=== PATIENT | male | born 1975 | race Hispanic/Latino ===

== ENCOUNTER 2016-09-07 15:26 | Emergency (ER) | payer OTHER ==
[~2016-09-07] VITALS: Ht 170.2 cm; Wt 98.0 kg
[~2016-09-07 15:26] MED LIST: COLC0.6C3 PO; HYDR-3874 PO; METH4TAB PO
[2016-09-07] MEDS ORDERED: LIDOCAINE/EPI 2% 1:100,00 (XYLOCAINE) 20 ML VIAL ONE (15:29)
[2016-09-07] MEDS ORDERED: LIDOCAINE/EPI 2% 1:100,00 (XYLOCAINE) 20 ML VIAL INJ ONE (15:30)
[2016-09-07] MEDS ORDERED: TETANUS,DIPTH,PERTUSS P/F (BOOSTRIX) 0.5 ML VIAL IM ONE ×2 (15:33→15:45)
[2016-09-07] MEDS ORDERED: AMOX-355 PO (16:06)
--- NOTE | 2016-09-07 16:06 | ED EENT ---
History of Present Illness General Chief Complaint: Laceration Stated Complaint: FACIAL LAC Nursing Triage Note: to ER with friend with reports of upper lip laceration while at work today. Source: patient Exam Limitations: no limitations History of Present Illness Time seen by provider: 16:02 Initial Comments To ER with a laceration to the left upper lip from running into a metal object at work at [employer]. Tetanus is not up-to-date. Timing/Duration: abrupt Severity: moderate Location: facial Prearrival Treatment: no prearrival treatment Allergies and Home Medications Allergies Coded Allergies: No Known Drug Allergies (Unverified , 10/06/11) Home Medications Colchicine 0.6 Mg Capsule, 0.6 MG PO Q1HR PRN for PAIN, #10 Prescribed by: APRIL ZAMORA on 10/20/152032 Hydrocodone/Acetaminophen 1 Each Tablet, 1-2 EACH PO Q4H PRN for PAIN, #10 Prescribed by: APRIL ZAMORA on 10/20/152032 Methylprednisolone 4 Mg Tab.ds.pk, 4 MG PO UD, #1 Prescribed by: APRIL ZAMORA on 10/20/152032 Review of Systems Constitutional: see HPI Eyes: No Symptoms Reported Ears: No Symptoms Reported Nose: no symptoms reported Mouth: see HPI Throat: no symptoms reported Respiratory: no symptoms reported Cardiovascular: no symptoms reported Musculoskeletal: no symptoms reported Past Svareim-Qdrebj-Twagki Hx Patient Social History Alcohol Use: Occasionally Uses Recreational Drug Use: No Smoking Status: Never a Smoker 2nd Hand Smoke Exposure: No Recent Foreign Travel: No Contact w/Someone Who Travel: No Recent Infectious Disease Expo: No Recent Hopitalizations: No Immunizations Up To Date Tetanus Booster (TDap): More than 5yrs Surgeries HX Surgeries: No Respiratory Hx Respiratory Disorders: No Cardiovascular Hx Cardiac Disorders: No Neurological Hx Neurological Disorders: No Reproductive System Hx Reproductive Disorders: No Genitourinary Hx Genitourinary Disorders: No Gastrointestinal Hx Gastrointestinal Disorders: No Musculoskeletal Hx Musculoskeletal Disorders: No Endocrine Hx Endocrine Disorders: No HEENT HX ENT Disorders: No Cancer Hx Cancer: No Psychosocial Hx Psychiatric Problems: No Integumentary HX Skin/Integumentary Disorder: No Blood Transfusions Hx Blood Disorders: No Physical Exam Vital Signs Vital Sign - Last 12Hours 09/07/16 15:30 Temp 98.2 Pulse 84 Resp 18 B/P (MAP) 134/76 Pulse Ox 98 O2 Delivery Room Air General Appearance: WD/WN, no apparent distress Eyes: bilateral eye EOMI, bilateral eye PERRL, bilateral eye normal inspection Ears: bilateral ear TM normal, bilateral ear auricle normal, bilateral ear canal normal Mouth/Throat: other (2.5 cm laceration to the left upper lip with depth to the musculature. This is not a through and through injury. There is a smaller puncture wound 0.5 cm to the buccal surface of the left upper lip.) Neck: non-tender, full range of motion Respiratory: no respiratory distress, no accessory muscle use Gastrointestinal: normal bowel sounds, non tender, soft Neurologic/Psychiatric: alert, normal mood/affect, oriented x 3 Skin: normal color, warm/dry Laceration Repair : Wound Location: Face Wound Length (cm): 2.5 Wound's Depth, Shape: into muscle Wound Explored: clean Irrigated w/ Saline (ccs): 40 Anesthesia: Lidocaine w/ Epi Volume Anesthetic (ccs): 3 Suture: Chromic, Ethlion Suture Size: 4-0, 5-0 Number of Sutures: 12 Layer Closure?: 2 Number Deep Layer Sutures: 2 Progress Laceration was anesthetized with a total of 3 mL of 1 percent lidocaine with epinephrine. Area was then scrubbed with chlorhexidine/saline solution and irrigated with the same after we trimmed this area of his mustache. 2 deep sutures were placed using size 4-0 chromic suture. Skin edges were then closed with a total of 9 simple interrupted sutures size 5-0 Ethilon. The puncture wound to the buccal surface of the left upper lip was then closed with a single simple interrupted suture size 4-0 chromic. Progress/Results/Core Measures Results/Orders My Orders Orders - MARIA INES DEVRIES APRN Lidocaine/Epi 2% 1:100,000 (Xylocaine/Ep (09/07/16 15:30) Lidocaine/Epi 2% 1:100,000 (Xylocaine/Ep (09/07/16 15:29) Dipht,Pertuss(Acell),Tet Adult (Boostrix (09/07/16 15:45) Dipht,Pertuss(Acell),Tet Adult (Boostrix (09/07/16 15:33) Medications Given in ED Current Medications Medications Dose Ordered Sig/Johan Route Start Time Stop Time Status Last Admin Dose Admin Diphtheria/ Tetanus/Acell Pertussis 0.5 ml ONCE ONCE IM 09/07/16 15:45 09/07/16 15:46 DC 09/07/16 15:39 0.5 ML Lidocaine/ Epinephrine 20 ml ONCE ONCE INJ 09/07/16 15:30 09/07/16 15:32 DC 09/07/16 15:38 2 ML Vital Signs/I&O Vital Sign - Last 12Hours 09/07/16 09/07/16 09/07/16 09/07/16 15:30 15:38 15:39 15:40 Temp 98.2 98.7 98.7 98.7 Pulse 84 Resp 18 B/P (MAP) 134/76 Pulse Ox 98 O2 Delivery Room Air Blood Pressure Mean: 95 Departure Impression Impression: Primary Impression: Facial laceration Disposition: HOME, SELF-CARE Condition: Stable Departure-Patient Inst. Decision time for Depature: 16:05 Referrals: NO,LOCAL PHYSICIAN (PCP/Family) Primary Care Physician Patient Instructions: Laceration Repair With Stitches (DC) Add. Discharge Instructions: 1. Follow-up with occupational health 2. Return to ER or occupational health in 7 days to have the stitches removed 2. Return to ER before then for any sign of infection such as redness or swelling 3. Antibiotics as directed 4. All discharge instructions reviewed with patient and/or family. Voiced understanding. Scripts Amoxicillin/Potassium Clav (Augmentin 500-125 Tablet) 1 Each Tablet 1 EACH PO BID, #10 TAB Prov: MARIA INES DEVRIES APRN 09/07/16 MARIA INES DEVRIES APRN Sep 07, 2016 16:06
[2016-09-07 16:12] VITALS: BP 134/76
== END 2016-09-07 16:13 | disposition home or self-care (01) ==
LOC: EDUNIT# 15:26 → ER 15:28
DX: S01.511A Laceration without foreign body of lip, initial encounter (principal); Z23 Encounter for immunization; W22.09XA Striking against other stationary object, initial encounter; Y99.0 Civilian activity done for income or pay
CPT/HCPCS: 12052; 90471; 90715

== ENCOUNTER 2019-11-07 13:31 | Emergency (ER) | payer SELFPAY ==
[~2019-11-07] VITALS: Ht 167 cm; Wt 104.0 kg
[~2019-11-07 13:31] MED LIST changes: +AMOX-355 PO; +HYDR-3870 PO; -HYDR-3874 PO
--- NOTE | 2019-11-07 13:38 | ED General ---
General Stated Complaint: COUGH Source of Information: Patient Exam Limitations: Language Barrier History of Present Illness Date Seen by Provider: Nov 07, 2019 Time Seen by Provider: 13:39 Initial Comments 44-year-old male presents with cough, headache and generalized malaise. Patient reports the symptoms started around October 25, 2019. Patient works at [employer] with known COVID and tested positive on October 24 for coronavirus. Patient has some mild chest tightness and feels like he has a hard time taking a deep breath. Patient has some diarrhea. The exam and history of present illness is limited due to language barrier as he speaks very little to no Indonesian. Allergies and Home Medications Allergies Coded Allergies: No Known Drug Allergies (Unverified , 10/06/11) Home Medications Amoxicillin/Potassium Clav 1 Each Tablet, 1 EACH PO BID Prescribed by: MARIA INES DEVRIES on 09/07/16 1606 Colchicine 0.6 Mg Capsule, 0.6 MG PO Q1HR PRN for PAIN Prescribed by: APRIL ZAMORA on 10/20/152032 Dexamethasone 4 Mg Tablet, 8 MG PO DAILY Prescribed by: AZUL ROQUE on 11/07/19 152 Doxycycline Hyclate 100 Mg Tablet, 100 MG PO BID Prescribed by: AZUL ROQUE on 11/07/19 1528 Hydrocodone/Acetaminophen 1 Each Tablet, 1-2 EACH PO Q4H PRN for PAIN Prescribed by: APRIL ZAMORA on 10/20/152032 Methylprednisolone 4 Mg Tab.ds.pk, 4 MG PO UD Prescribed by: APRIL ZAMORA on 10/20/152032 Patient Home Medication List Home Medication List Reviewed: Yes Review of Systems Review of Systems Constitutional: fever, malaise, weakness Respiratory: cough, short of breath Cardiovascular: see HPI Gastrointestinal: diarrhea; No nausea, No vomiting Musculoskeletal: no symptoms reported Skin: no symptoms reported Past Yzbblvo-Xrndvw-Wlekuh Hx Past Med/Social Hx: Reviewed Nursing Past Med/Soc Hx Patient Social History 2nd Hand Smoke Exposure: No Recent Hopitalizations: No Immunizations Up To Date Tetanus Booster (TDap): More than 5yrs Past Medical History Reproductive Disorders: No Physical Exam Vital Signs Vital Signs - First Documented 11/07/19 13:45 Temp 37.9 Pulse 117 Resp 22 B/P (MAP) 156/103 (120) Pulse Ox 95 O2 Delivery Room Air Capillary Refill : Height, Weight, BMI Height: 5'7" Weight: 216lbs. oz. 97.612204dt; 34.45 BMI Method:Stated General Appearance: No Apparent Distress, WD/WN HEENT: PERRL/EOMI Respiratory: No Accessory Muscle Use, No Respiratory Distress Cardiovascular: Tachycardia Gastrointestinal: Non Tender, Soft Back: Normal Inspection Extremity: Normal Capillary Refill Neurologic/Psychiatric: Alert, Oriented x3, No Motor/Sensory Deficits, Normal Mood/Affect, staffing clerk II-XII Norm as Tested Skin: Normal Color, Warm/Dry Focused Exam Lactate Level 11/07/19 14:00: Lactic Acid Level 1.96 Lactic Acid Level Laboratory Tests Test 11/07/19 14:00 Lactic Acid Level 1.96 MMOL/L (0.50-2.00) Procedures/Interventions Suture Size: 4-0, 5-0 Progress/Results/Core Measures Suspected Sepsis SIRS Temperature: Pulse: Respiratory Rate: Laboratory Tests 11/07/19 14:00: White Blood Count 5.5 Blood Pressure / Mean: 11/07/19 14:00: Lactic Acid Level 1.96 Laboratory Tests 11/07/19 14:00: Creatinine 0.83, INR Comment 1.1, Platelet Count 228, Total Bilirubin 0.3 Results/Orders Lab Results Laboratory Tests Test 11/07/19 14:00 Range/Units White Blood Count 5.5 4.3-11.0 10^3/uL Red Blood Count 4.67 4.35-5.85 10^6/uL Hemoglobin 13.0 L 13.3-17.7 G/DL Hematocrit 37 L 40-54 % Mean Corpuscular Volume 80 80-99 FL Mean Corpuscular Hemoglobin 28 25-34 PG Mean Corpuscular Hemoglobin Concent 35 32-36 G/DL Red Cell Distribution Width 12.6 10.0-14.5 % Platelet Count 228 130-400 10^3/uL Mean Platelet Volume 10.4 7.4-10.4 FL Neutrophils (%) (Auto) 85 H 42-75 % Lymphocytes (%) (Auto) 10 L 12-44 % Monocytes (%) (Auto) 5 0-12 % Eosinophils (%) (Auto) 0 0-10 % Basophils (%) (Auto) 0 0-10 % Neutrophils # (Auto) 4.7 1.8-7.8 X 10^3 Lymphocytes # (Auto) 0.5 L 1.0-4.0 X 10^3 Monocytes # (Auto) 0.3 0.0-1.0 X 10^3 Eosinophils # (Auto) 0.0 0.0-0.3 10^3/uL Basophils # (Auto) 0.0 0.0-0.1 10^3/uL Prothrombin Time 15.0 H 12.2-14.7 SEC INR Comment 1.1 0.8-1.4 Activated Partial Thromboplast Time 38 H 24-35 SEC Fibrinogen 618 H 221-496 MG/DL Sodium Level 136 135-145 MMOL/L Potassium Level 3.4 L 3.6-5.0 MMOL/L Chloride Level 103 98-107 MMOL/L Carbon Dioxide Level 24 21-32 MMOL/L Anion Gap 9 5-14 MMOL/L Blood Urea Nitrogen 13 7-18 MG/DL Creatinine 0.83 0.60-1.30 MG/DL Estimat Glomerular Filtration Rate > 60 BUN/Creatinine Ratio 16 Glucose Level 232 H 70-105 MG/DL Lactic Acid Level 1.96 0.50-2.00 MMOL/L Calcium Level 8.6 8.5-10.1 MG/DL Corrected Calcium 9.0 8.5-10.1 MG/DL Total Bilirubin 0.3 0.1-1.0 MG/DL Aspartate Amino Transf (AST/SGOT) 18 5-34 U/L Alanine Aminotransferase (ALT/SGPT) 23 0-55 U/L Alkaline Phosphatase 53 40-136 U/L Lactate Dehydrogenase 339 H 125-220 U/L Troponin I < 0.028 <0.028 NG/ML C-Reactive Protein High Sensitivity 9.67 H 0.00-0.50 MG/DL Total Protein 7.0 6.4-8.2 GM/DL Albumin 3.5 3.2-4.5 GM/DL My Orders Orders - ROQUE,AZUL L DO Vital Signs: Every 4 Hours (Or (11/07/19 13:55) Monitor-Rhythm Ecg Trace Only (11/07/19 13:55) Cbc With Automated Diff (11/07/19 13:55) Comprehensive Metabolic Panel (11/07/19 13:55) Ferritin (11/07/19 13:55) LDH (11/07/19 13:55) Hs C Reactive Protein (11/07/19 13:55) Troponin I (11/07/19 13:55) Lactic Acid Analyzer (11/07/19 13:55) Protime With Inr (11/07/19 13:55) Partial Thromboplastin Time (11/07/19 13:55) Fibrinogen (11/07/19 13:55) Ekg Tracing (11/07/19 13:55) Chest 1 View, Ap/Pa Only (11/07/19 13:55) Lactated Ringers (Lr 1000 Ml Iv Solution (11/07/19 13:55) Acetaminophen Tablet/Caplet (Tylenol T (11/07/19 14:00) Dexamethasone Injection (Decadron Inject (11/07/19 14:00) Doxycycline Hyclate Tablet (Vibramycin T (11/07/19 14:45) Lactated Ringers (Lr 1000 Ml Iv Solution (11/07/19 14:52) Ibuprofen Tablet (Motrin Tablet) (11/07/19 15:00) Medications Given in ED Current Medications Medications Dose Ordered Sig/Johan Route Start Time Stop Time Status Last Admin Dose Admin Acetaminophen 650 mg ONCE ONCE PO 11/07/19 14:00 11/07/19 14:01 DC 11/07/19 14:07 650 MG Dexamethasone Sodium Phosphate 10 mg ONCE ONCE IV 11/07/19 14:00 11/07/19 14:01 DC 11/07/19 14:07 10 MG Ibuprofen 400 mg ONCE ONCE PO 11/07/19 15:00 11/07/19 15:01 DC 11/07/19 14:54 400 MG Vital Signs/I&O 11/07/19 13:45 Temp 37.9 Pulse 117 Resp 22 B/P (MAP) 156/103 (120) Pulse Ox 95 O2 Delivery Room Air Capillary Refill : Progress Note : Time: 15:24 Progress Note Patient is feeling better following treatment. He is coronavirus positive. He does have x-ray that is consistent with coronavirus however his oxygen is in the mid upper 90s. At this time he does not need hospitalization. I will start him on doxycycline due to the pneumonia look of his x-ray. I'll also give him some steroids for a couple days. Patient is stable upon discharge. He should return to the ER if symptoms worsen. Departure Impression Primary Impression: Pneumonia due to human coronavirus Disposition: HOME, SELF-CARE Condition: Stable Departure-Patient Inst. Referrals: NO,LOCAL PHYSICIAN (PCP/Family) Primary Care Physician Patient Instructions: COVID19 DOMINICAN Add. Discharge Instructions: Jonah Laureano Dexamethasone (Dexamethasone) 4 Mg Tablet 8 MG PO DAILY for 3 Days, #6 TAB Prov: AZUL ROQUE DO 11/07/19 Doxycycline Hyclate (Doxycycline Hyclate) 100 Mg Tablet 100 MG PO BID, #20 TAB 0 Refills Prov: AZUL ROQUE DO 11/07/19 AZUL ROQUE DO Nov 07, 2019 13:38
[2019-11-07] MEDS ORDERED: LACTATED RINGERS 1,000 ML IV SCH ×2 (13:55→14:52)
[2019-11-07] MEDS ORDERED: ACETAMINOPHEN 325 MG TABLET PO ONE (14:00)
[2019-11-07] MEDS ORDERED: DEXAMETHASONE 10 MG/ML (DECADRON) 1 ML VIAL IV ONE (14:00)
[2019-11-07 14:25] LABS: BASOPHILS % (AUTO) 0 % (0-10); EOSINOPHILS % (AUTO) 0 % (0-10); HEMATOCRIT 37 % (40-54); LYMPHOCYTES # (AUTO) 0.5 X 10^3 (1.0-4.0); LYMPHOCYTES % (AUTO) 10 % (12-44); MEAN CORPUSCULAR HEMOGLOBIN 28 PG (25-34); MEAN CORPUSCULAR HGB CONC 35 G/DL (32-36); MEAN CORPUSCULAR VOLUME 80 FL (80-99); MEAN PLATELET VOLUME 10.4 FL (7.4-10.4); MONOCYTES # (AUTO) 0.3 X 10^3 (0.0-1.0); MONOCYTES % (AUTO) 5 % (0-12); NEUTROPHILS # (AUTO) 4.7 X 10^3 (1.8-7.8); NEUTROPHILS % (AUTO) 85 % (42-75); PLATELET COUNT 228 10^3/uL (130-400); RED CELL DISTRIBUTION WIDTH 12.6 % (10.0-14.5); WHITE BLOOD COUNT 5.5 10^3/uL (4.3-11.0)
[2019-11-07 14:34] LABS: ALBUMIN 3.5 GM/DL (3.2-4.5); CHLORIDE 103 MMOL/L (98-107); POTASSIUM 3.4 MMOL/L (3.6-5.0); SODIUM 136 MMOL/L (135-145)
[2019-11-07 14:35] LABS: CALCIUM 8.6 MG/DL (8.5-10.1)
[2019-11-07 14:36] LABS: GLUCOSE 232 MG/DL (70-105)
[2019-11-07 14:37] LABS: CARBON DIOXIDE 24 MMOL/L (21-32)
[2019-11-07 14:38] LABS: BILIRUBIN,TOTAL 0.3 MG/DL (0.1-1.0)
[2019-11-07 14:39] LABS: ALKALINE PHOSPHATASE 53 U/L (40-136)
[2019-11-07 14:40] LABS: CREATININE SERUM 0.83 MG/DL (0.60-1.30); GFR ESTIMATED > 60
[2019-11-07 14:41] LABS: BUN/CREATININE RATIO 16
[2019-11-07 14:42] LABS: INR 1.1 (0.8-1.4)
[2019-11-07 14:43] LABS: ALANINE AMINOTRANSFERASE 23 U/L (0-55)
[2019-11-07] MEDS ORDERED: DOXYCYCLINE 100 MG (VIBRAMYCIN) TABLET PO SCH (14:45)
--- NOTE | 2019-11-07 14:49 | Diagnostic Imaging Report ---
INDICATION: Cough. TIME OF EXAM: 02:25 p.m. COMPARISON: No prior studies are available for comparison. FINDINGS: The heart appears mildly enlarged. There are patchy airspace infiltrates throughout both lungs suggestive of pneumonia. No effusion is identified. No pneumothorax is seen. IMPRESSION: Patchy bilateral airspace infiltrates consistent with pneumonia. Dictated by: Dictated on workstation # [id number]
--- NOTE | 2019-11-07 14:52 | NUR ---
TEMP DOWN TO 37.1 HR 100
[2019-11-07] MEDS ORDERED: IBUPROFEN TABLET 200 MG TAB PO ONE (15:00)
[2019-11-07] MEDS ORDERED: DOXY100T2 PO (15:28)
[2019-11-07] MEDS ORDERED: DEXA4TAB PO (15:28)
--- OUTSIDE RECORDS SUMMARY | 2019-11-07 15:33 | XMS REPORT | Continuity of Care Document ---
Author Organization Unknown Address Unknown Phone Unavailable Allergies Active Description Code Type Severity Reaction Onset Reported/Identified Relationship to Patient Clinical Status Yes No Known Drug Allergies [id number] Drug Allergy Unknown N/A 10/06/2011 Medications There is no data. 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 10/06/2011 Ot E000.8 OT ER EXTERNAL CAUSE STATUS 10/06/2011 Ot E928.9 ACC IDENT NOS 10/20/2015 NOAH STOVALL, APRIL Thompson Ot M10.071 IDIOPATHIC GOUT, RIGHT ANKLE AND FOOT 10/22/2015 APRIL ZAMORA MD Ot M10.071 IDIOPATHIC GOUT, RIGHT ANKLE AND FOOT 09/07/2016 MARIA INES DEVRIES APRN Ot S01.511A LACERATION WITHOUT FOREIGN BODY OF LIP, 09/07/2016 MARIA INES DEVRIES APRN Ot W22.09XA STRIKING AGAINST OTHER STATIONARY OBJECT 09/07/2016 MARIA INES DEVRIES APRN Ot Y99 .0 CIVILIAN ACTIVITY DONE FOR INCOME OR PAY 09/07/2016 MARIA INES DEVRIES APRN Ot Z23 ENCOUNTER FOR IMMUNIZATION 09/09/2016 MARIA INES DEVRIES APRN Ot S01.511A LACERATION WITHOUT FOREIGN BODY OF LIP, 09/09/2016 MARIA INES DEVRIES APRN Ot W22.09XA STRIKING AGAINST OTHER STATIONARY OBJECT 09/09/2016 MARIA INES DEVRIES APRN Ot Y99 .0 CIVILIAN ACTIVITY DONE FOR INCOME OR PAY 09/09/2016 MARIA INES DEVRIES APRN Ot Z23 ENCOUNTER FOR IMMUNIZATION Procedures There is no data. Results Test Result Range Blood lactic acid measurement (moles/vol ume) - 11/07/19 14:00 Blood lactic acid measurement (moles/volume) 1.96 mmol/L 0.50-2.00 Complete blood count (CBC) with automate d white blood cell (WBC) differential - 11/07/19 14:00 Blood leukocytes automated count (number/volume) 5.5 10*3/uL 4.3-11.0 Blood erythrocytes automated count (number/volume) 4.67 10*6/uL 4.35-5.85 Venous blood hemoglobin measurement (mass/volume) 13.0 g/dL 13.3-17.7 Blood hematocrit (volume fraction) 37 % 40-54 Automated erythrocyte mean corpuscular volume 80 [ foz_us] 80-99 Automated erythrocyte mean corpuscular h emoglobin (mass per erythrocyte) 28 pg 25-34 Automated erythrocyte mean corpuscular h emoglobin concentration measurement (mass/volume) 35 g/dL 32-36 Automated erythrocyte distribution width ratio 12. 6 % 10.0- 14.5 Automated blood platelet count (count/volume) 228 10*3/uL 130-400 Automated blood platelet mean volume measurement 10.4 [foz_us] 7.4-10.4 Automated blood neutrophils/100 leukocytes 85 % 42-75 Automated blood lymphocytes/100 leukocytes 10 % 12-44 Blood monocytes/100 leukocytes 5 % 0-12 Automated blood eosinophils/100 leukocytes 0 % 0-10 Automated blood basophils/100 leukocytes 0 % 0-10 Blood neutrophils automated count (number/volume) 4.7 10*3 1.8-7.8 Blood lymphocytes automated count (number/volume) 0.5 10*3 1.0-4.0 Blood monocytes automated count (number/volume) 0. 3 10*3 0.0-1.0 Automated eosinophil count 0.0 10*3/uL 0 .0-0.3 Automated blood basophil count (count/volume) 0.0 10*3/uL 0.0-0.1 Comprehensive metabolic panel - 11/07/19 14:00 Serum or plasma sodium measurement (moles/volume) 136 mmol/L 135-145 Serum or plasma potassium measurement (moles/volume) 3.4 mmol/L 3.6-5.0 Serum or plasma chloride measurement (moles/volume) 103 mmol/L 98-107 Carbon dioxide 24 mmol/L 21-32 Serum or plasma anion gap determination (moles/volume) 9 mmol/L 5-14 Serum or plasma urea nitrogen measurement (mass/volume ) 13 mg/dL 7-18 Serum or plasma creatinine measurement (mass/volume) 0.83 mg/dL 0.60-1.30 Serum or plasma urea nitrogen/creatinine mass ratio 16 NRG Serum or plasma creatinine measurement w ith calculation of estimated glomerular filtration rate > NRG Serum or plasma glucose measurement (mass/volume) 232 mg/dL 70-105 Serum or plasma calcium measurement (mass/volume) 8.6 mg/dL 8.5-10.1 Serum or plasma total bilirubin measurement (mass/volu me) 0.3 mg/dL 0.1-1.0 Serum or plasma alkaline phosphatase herb surement (enzymatic activity/volume) 53 U/L 40-136 Serum or plasma aspartate aminotransfera se measurement (enzymatic activity/volume) 18 U/L 5-34 Serum or plasma alanine aminotransferase measurement (enzymatic activity/volume) 23 U/L 0-55 Serum or plasma protein measurement (mass/volume) 7.0 g/dL 6.4-8.2 Serum or plasma albumin measurement (mass/volume) 3.5 g/dL 3.2-4.5 CALCIUM CORRECTED 9.0 mg/dL 8.5-10.1 Serum ragweed IgE antibody assay - 11/06 14:00 Serum ragweed IgE antibody assay 339 U/L 125-220 Serum or plasma troponin i.cardiac measu rement (mass/volume) - 11/07/19 14:00 Serum or plasma troponin i.cardiac measurement (mass/v olume) < ng/mL <0.028 PT panel in platelet poor plasma by coag ulation assay - 11/07/19 14:00 Prothrombin time (PT) in platelet poor plasma by coagu lation assay 15.0 s 12.2-14.7 INR in platelet poor plasma or blood by coagulation as say 1.1 0.8-1.4 Activated partial thromboplastin time (a PTT) in platelet poor plasma bycoagulation assay - 11/07/19 14:00 Activated partial thromboplastin time (a PTT) in platelet poor plasma bycoagulation assay 38 s 24-35 Fibrinogen measurement in platelet poor plasma by coagulation assay (mass/volume) - 11/07/19 14:00 Fibrinogen measurement in platelet poor plasma by coagulation assay (mass/volume) 618 mg/dL 221-496 Serum or plasma C reactive protein measu rement (mass/volume) - 11/07/19 14:00 Serum or plasma C reactive protein measurement (mass/v olume) 9.67 mg/dL 0.00-0.50 Encounters ACCT No. Visit Date/Time Discharge Status Pt. Type Provider Facility Loc./Unit Complaint [id number] 09/07/2016 15:28:00 017 16:13:00 DIS Emergency MARIA INES DEVRIES APRN [facility] ER FACIAL LAC [id number] 10/20/2015 20:12:00 016 20:51:00 DIS Emergency APRIL ZAMORA MD [facility] ER RT HAND FINGER PAIN [id number] 11/07/2019 13:34:[address] Emergency AZUL ROQUE DO [facility] ER COUGH [id number] 10/06/2011 18:29:00 Document Registration
--- OUTSIDE RECORDS SUMMARY | 2019-11-07 15:33 | XMS REPORT ---
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 Name Role Phone NO, LOCAL PHYSICIAN Unavailable Unavailable Allergies Normalized Allergy Reported Date of Reaction(s) Care Provider Facility Allergy Type classification allergen Allergy Onset NEGATED no information No Known Drug 10-06-2011 - no informati on MARIA INES DEVRIES Not Available DA (4 Allergies (57940) sources.) Medications No Information Problems Problem Normalized Date Last Normalized Normalized Provider Fa cility Classification Problem(s) Recorded Problem Problem Sta tus Duration NEGATED Civilian no information no information no name no information no activity done information (3 for income or sources.) pay Translations: [ OTHER EXTERNAL CAUSE STATUS] Immunizations Encounter for Episodic Completed no name no i nformation and screening immunization for infectious disease (2 sources.) Open wounds of Laceration Episodic Completed no name no inf ormation head; neck; without and trunk (2 foreign body sources.) of lip, initial encounter Other eye Redness or Episodic Completed CHAVA SEGLIE , Not Av ailable disorders (1 discharge of (56983) source.) eye External Striking no information no information no name no information Injury - against other Struck by; stationary against (2 object, sources.) initial encounter Superficial Superficial Episodic Completed CHAVA SEGLIE , Not Available injury; injury of (54930) contusion (1 cornea source.) External cause Unspecified no information no information CHAVA SEGLIE , Not Available codes: accident (99179) Natural/enviro nment (1 source.) Procedures The data below is from unstructured sourcesNo procedure information available.No known history of procedures.No known history of procedures. Immunizations The data below is from unstructured sourcesNo immunization records. Results The data below is from unstructured sourcesNo known relevant diagnostic tests, laboratory data and/or discharge summary. Vital Signs The data below is from unstructured sources Vital Response Date/Time Temperature (Fahrenheit) 98.7 degree s F (97.6 - 99.5) 09/07/2016 3:40pm Temperature (Calculated Celsius) 37. 70107 degrees C (36.4 - 37.5) 09/07/2016 3:40pm Temperature Source Temporal 09/07/2016 3:40pm Pulse Rate (adult) 84 bpm (60 - 90) 09/07/2016 3:30pm Respiratory Rate 18 bpm (12 - 24) 09/07/2016 3:30pm O2 Sat by Pulse Oximetry 98 % (88 - 100) 09/07/2016 3:30pm Blood Pressure 134/76 mm Hg 09/07/2016 3:30pm Blood Pressure Mean 95 mm Hg 09/07/2016 3:30pm Pain Numeric Pain Scale 5-Moderate Pain 09/07/2016 3:40pm Height (Feet) 5 feet 3:30pm Height (Inches) 7 inches 09/07/2016 3:30pm Height (Calculated Centimeters) 170. 973726 cm 09/07/2016 3:30pm Weight (Pounds) 216 pounds 09/07/2016 3:30pm Weight (Calculated Grams) 23946.953 gm 09/07/2016 3:30pm Weight (Calculated Kilograms) 97.975 953 kilograms 09/07/2016 3:30pm Calculated BMI 34.45 3:30pm Capillary Refill Capillary Refill Less Than 3 Seconds 09/07/2016 3:30pm Vital Response Date/Time Temperature (Fahrenheit) 98.2 degree s F (97.6 - 99.5) 10/20/2015 8:27pm Temperature (Calculated Celsius) 36. 08967 degrees C (36.4 - 37.5) 10/20/2015 8:27pm Temperature Source Temporal 10/20/2015 8:27pm Pulse Rate (adult) 73 bpm (60 - 90) 10/20/2015 8:27pm Respiratory Rate 18 bpm (12 - 24) 10/20/2015 8:27pm O2 Sat by Pulse Oximetry 97 % (88 - 100) 10/20/2015 8:27pm Blood Pressure 167/118 mm Hg 10/20/2015 8:27pm Blood Pressure Mean 134 mm Hg 10/20/2015 8:27pm Pain Pain Intensity 5 2015 8:27pm Height (Feet) 5 feet 08/2015 8:27pm Height (Inches) 7 inches 10/20/2015 8:27pm Height (Calculated Centimeters) 170. 562394 cm 10/20/2015 8:27pm Weight (Pounds) 216 pounds 10/20/2015 8:27pm Weight (Calculated Kilograms) 97.975 953 kilograms 10/20/2015 8:27pm Height 5 ft 7 in Weight 216 lb Body Mass Index 33.8 kg/m^2 Vital Response Date/Time Temperature (Fahrenheit) 98.2 degree s F (97.6 - 99.5) 10/20/2015 8:27pm Temperature (Calculated Celsius) 36. 87927 degrees C (36.4 - 37.5) 10/20/2015 8:27pm Temperature Source Temporal 10/20/2015 8:27pm Pulse Rate (adult) 73 bpm (60 - 90) 10/20/2015 8:27pm Respiratory Rate 18 bpm (12 - 24) 10/20/2015 8:27pm O2 Sat by Pulse Oximetry 97 % (88 - 100) 10/20/2015 8:27pm Blood Pressure 167/118 mm Hg 10/20/2015 8:27pm Blood Pressure Mean 134 mm Hg 10/20/2015 8:27pm Pain Pain Intensity 5 2015 8:27pm Height (Feet) 5 feet 08/2015 8:27pm Height (Inches) 7 inches 10/20/2015 8:27pm Height (Calculated Centimeters) 170. 602387 cm 10/20/2015 8:27pm Weight (Pounds) 216 pounds 10/20/2015 8:27pm Weight (Calculated Kilograms) 97.975 953 kilograms 10/20/2015 8:27pm Height 5 ft 7 in Weight 216 lb Body Mass Index 33.8 kg/m^2 Interventions No Information Plan of Treatment The data below is from unstructured sources Discharge Date 09/07/16 4:13pm Disposition 01 HOME, SELF-CARE Condition at Discharge Stable Instructions/Education Provided Lace ration Repair With Stitches (DC) Prescriptions See Medication Section Referrals NO,LOCAL PHYSICIAN Order Date: Primary Care Physician Additional Instructions/Education 1. Follow-up with occupational health 2. Return to ER or occupational health i n 7 days to have the stitches removed 2. Return to ER before then for any sign of infection such as redness or swelling 3. Antibiotics as directed 4. All discharge instructions reviewed w ith patient and/or family. Voiced understanding. Discharge Date 10/20/15 8:51pm Disposition 01 HOME, SELF-CARE Condition at Discharge Stable Instructions/Education Provided Acut e Gouty Arthritis (ED) Prescriptions See Medication Section Referrals NO,[facility] PHYSICIAN [facility] Discharge Date 10/20/15 8:51pm Disposition 01 HOME, SELF-CARE Condition at Discharge Stable Instructions/Education Provided Acut e Gouty Arthritis (ED) Prescriptions See Medication Section Referrals NO,[facility] Physician Goals No Information Social History No Information Functional Status The data below is from unstructured sourcesNo functional status information available.No functional status results.No functional status results. Mental Status No Information Encounters Encounter Normalized Encounter Encounter Diagnosis Care Provi melonie Organization Date Type 10-06-2011 Emergency department no information no name no organization name - patient visit 10-06-2011 09-07-2016 Patient encounter no information no name no or ganization name procedure Patient encounter no information no name no organizat ion name procedure Medical Equipment No Information Payers No Information Advance Directives Directive Response Recor ded Date/Time Advance Directives No 3:30pm Resuscitation Status Full Code 09/07/16 3:30pm Directive Response Recor ded Date/Time Advance Directives No 8:27pm Resuscitation Status Full Code 10/20/15 8:27pm Discharge Instructions No hospital discharge instruction information available.No hospital discharge instructions. Additional Source Comments This clinical document has been generated using [employer] software that has been certified by the Office of the National Coordinator for Health Information Technology (ONC 15.99.04.3023.Diam.[id number]) and the National Committee for [employer] (NCQA, as an eMeasure certified technology). FOR RECORDS PERTAINING TO PATIENTS WHO ARE OR HAVE BEEN ENROLLED IN A CHEMICAL D EPENDENCY/SUBSTANCE ABUSE PROGRAM, SOME INFORMATION MAY BE OMITTED. This clinica l summary was aggregated from multiple sources. Caution should be exercised in using it in the provision of clinical care. This summary normalizes information from multiple sources, and as a consequence, information in this document may ma terially change the coding, format and clinical context of patient data. In fernando tion, data may be omitted in some cases. CLINICAL DECISIONS SHOULD BE BASED ON T HE PRIMARY CLINICAL RECORDS. [facility] [employer] [facility]. provides no warranty or guara ntee of the accuracy or completeness of information in this document.The followi ng information is based on time limited clinical information
[2019-11-07 15:43] VITALS: BP 119/78
== END 2019-11-07 15:43 | disposition home or self-care (01) ==
LOC: EDUNIT# 13:31 → ER 13:34
DX: U07.1 COVID-19 (principal); J12.89 Other viral pneumonia; Z79.52 Long term (current) use of systemic steroids
CPT/HCPCS: 36415; 71045; 80053; 82728; 83605; 83615; 84484; 85025; 85384; 85610; 85730; 86141; 93041